=== PATIENT | male | born 1980 | race African-American/Black ===

== ENCOUNTER → 2018-03-16 | Outpatient (CLI) | payer OTHER ==
[2014-04-05 22:39] VITALS: BP 185/112
--- NOTE | 2018-03-16 10:56 | RAD ---
Ultrasound-guided left thyroid biopsy, 03/16/2018: History: Dominant enlarging nodule An outside study demonstrated a multinodular goiter with multiple solid nodules. It was thought that the dominant nodule in the lower pole of the left lobe of the gland was enlarging, and therefore ultrasound-guided biopsy was requested. Under local anesthesia, aseptic conditions and sonographic guidance a 25-gauge was passed into the nodule in the inferior aspect of the left lobe of the thyroid gland via an anterolateral medial approach. 4 aspirates were obtained from different portions of the nodule in this manner with the materials sent to pathology for evaluation. Hemostasis was then obtained. The patient tolerated the procedure well and left the department in good condition. The pathology results are pending.
--- NOTE | 2018-03-21 10:10 | PATHOLOGY ---
Note [facility] Accession Number: [id number] TESTS RESULT FLAG UNITS REF RANGE LAB Clinician Provided Cytology Information No. of containers..01 Other (Miscellaneous) Source: LEFT THYROID DIAGNOSIS: LEFT THYROID NEGATIVE FOR MALIGNANT CELLS. B[place]ESDA CATEGORY II. SPECIMEN CONSISTS OF BENIGN FOLLICULAR CELLS, HEMOSIDERIN-LADEN MACROPHAGES, COLLOID, AND BLOOD. THIS PATTERN IS CONSISTENT WITH A BENIGN FOLLICULAR NODULE. Pathologist ICD10: 02 E04.1 Signed out by: Mike Hernández MD, Pathologist NPI- [id number] Performed by: Santa Mckinley, Corporate Legal Assistant ([facility]) Gross description: 30ML, RED, CLEAR /LCS FLAG LEGEND: L-Low Normal,H-High Normal,LL-Alert Low,HH-Alert High <-Panic Low,>-Panic High,A-Abnormal,AA-Critical Abnormal Performed at: 01 [facility] [address] [place] [address] Hua Ruff MD, 02 [facility] [address] [place] [address] Mike Hernández MD, Specimen Comment: A courtesy copy of this report has been sent to Specimen Comment: [phone]. Specimen Comment: Report sent to Performed at: [address], [place], [place] [id number] MD Hua Ruff MD Phone: [phone]
== END | disposition home or self-care (01) ==
LOC: US 08:34
PROVIDERS: ATTEND Surgery
DX: E04.1 Nontoxic single thyroid nodule (principal)
CPT/HCPCS: 10022; 60300; 76942; 88173

== ENCOUNTER 2018-11-05 14:20 | Emergency (ER) | payer OTHER ==
[~2018-11-05] VITALS: Ht 193 cm; Wt 199.6 kg
[2018-11-05 14:44] VITALS: BP 207/103
[2018-11-05] MEDS: fentaNYL PF VIAL 100 MCG/2 ML VIAL IV ONE (16:25)
[2018-11-05 16:27] LABS: BASO # 0.1 x10^3/uL (0.0-0.2); BASO % 1 % (0-3); EOS # 0.2 x10^3/uL (0.0-0.7); EOS % 2 % (0-3); HEMATOCRIT 42.9 % (39.0-53.0); HEMOGLOBIN 14.6 g/dL (13.0-17.5); LYMPH % 31 % (24-48); MEAN CORPUSCULAR HEMOGLOBIN 29 pg (25-35); MEAN CORPUSCULAR HGB CONC 34 g/dL (31-37); MEAN CORPUSCULAR VOLUME 86 fL (79-100); MONO # 1.3 x10^3/uL (0.0-1.1); MONO % 13 % (0-9); NEUT # 5.3 x10^3uL (1.8-7.7); NEUT % 54 % (31-73); PLATELET COUNT 305 x10^3/uL (140-400); RED BLOOD COUNT 4.98 x10^6/uL (4.30-5.70); RED CELL DISTRIBUTION WIDTH 14.4 % (11.5-14.5)
[2018-11-05 16:45] LABS: CALCIUM 9.6 mg/dL (8.5-10.1); CREATININE 1.4 mg/dL (0.7-1.3); GFR 68.6; POTASSIUM 4.1 mmol/L (3.5-5.1)
[2018-11-05 16:50] LABS: ALBUMIN 3.5 g/dL (3.4-5.0); ALBUMIN/GLOBULIN RATIO 0.8 (1.0-1.7); TOTAL BILIRUBIN 0.2 mg/dL (0.2-1.0); URIC ACID 8.6 mg/dL (3.5-7.2)
--- NOTE | 2018-11-05 16:54 | PHYS DOC ---
Past Medical History Past Medical History: Hypertension Past Surgical History: Tonsillectomy Alcohol Use: Occasionally Drug Use: None Adult General Chief Complaint Chief Complaint: FOOT INJURY PAIN HPI HPI 38-year-old male presents to ER via POV for complaints of left ankle and foot swelling which started on Tuesday and has been gradually worsening. Pt reports he felt feverish yesterday denies fatigue, nausea or vomiting, shortness of air, or palpitations. Pt reports he took Excedrin yesterday denies any [id number]-[id number] medicine today. Pt denies any injury. Patient reports he has a daily cigarette smoker approximate half pack per day. Patient states he [place] drive to [place]. Review of Systems Review of Systems Constitutional: Reports felt feverish with chills yesterday. Eyes: Denies change in visual acuity, redness, or eye pain [] HENT: Denies nasal congestion or sore throat [] Respiratory: Denies cough or shortness of breath [] Cardiovascular: No additional information not addressed in HPI [] GI: Denies abdominal pain, nausea, vomiting, bloody stools or diarrhea [] : Denies dysuria or hematuria [] Musculoskeletal: Denies back pain. Reports lt ankle/foot pain and swelling Integument: Denies rash or skin lesions [] Neurologic: Denies headache, focal weakness or sensory changes [] Endocrine: Denies polyuria or polydipsia [] All other systems were reviewed and found to be within normal limits, except as documented in this note. Current Medications Current Medications Current Medications Medications (Trade) Dose Ordered Sig/Lauren Start Time Stop Time Status Last Admin Dose Admin Acetaminophen/ Hydrocodone Bitart (Lortab 5/325) 1 tab 1X ONCE 11/05/18 17:45 11/05/18 17:46 DC 11/05/18 17:49 1 TAB Fentanyl Citrate (Fentanyl 2ml Vial) 50 mcg 1X ONCE 11/05/18 16:00 11/05/18 16:01 DC 11/05/18 16:25 50 MCG Prednisone (Prednisone) 50 mg 1X ONCE 11/05/18 17:45 11/05/18 17:46 DC 11/05/18 17:49 50 MG Allergies Allergies Allergies Coded Allergies Type Severity Reaction Last Updated Verified No Known Drug Allergies 04/05/14 No Physical Exam Physical Exam Constitutional: Well developed, well nourished, no acute distress, non-toxic appearance. [] HENT: Normocephalic, atraumatic, bilateral external ears normal, oropharynx moist, no oral exudates, nose normal. [] Eyes: Pupils equal, conjunctiva normal, no discharge. [] Neck: Normal range of motion, no tenderness, supple, no stridor. [] Cardiovascular:Heart rate regular rhythm, no murmur [] Lungs & Thorax: Bilateral breath sounds clear to auscultation [] Abdomen: Bowel sounds normal, soft/obese, no tenderness Skin: Warm, dry, no erythema, no rash. [] Back: No tenderness, no CVA tenderness. [] Extremities: No cyanosis, no clubbing Neurologic: Alert and oriented X 3, normal motor function, normal sensory function, no focal deficits noted. [] Psychologic: Affect normal, judgement normal, mood normal. [] Current Patient Data Vital Signs Vital Signs Date Time Temp Pulse Resp B/P (MAP) Pulse Ox O2 Delivery O2 Flow Rate FiO2 11/05/18 17:49 16 98 11/05/18 16:25 Room Air 11/05/18 14:44 98.6 111 207/103 (137) 98.6 Lab Values Laboratory Tests Test 11/05/18 16:18 White Blood Count 10.0 x10^3/uL (4.0-11.0) Red Blood Count 4.98 x10^6/uL (4.30-5.70) Hemoglobin 14.6 g/dL (13.0-17.5) Hematocrit 42.9 % (39.0-53.0) Mean Corpuscular Volume 86 fL (79-100) Mean Corpuscular Hemoglobin 29 pg (25-35) Mean Corpuscular Hemoglobin Concent 34 g/dL (31-37) Red Cell Distribution Width 14.4 % (11.5-14.5) Platelet Count 305 x10^3/uL (140-400) Neutrophils (%) (Auto) 54 % (31-73) Lymphocytes (%) (Auto) 31 % (24-48) Monocytes (%) (Auto) 13 % (0-9) H Eosinophils (%) (Auto) 2 % (0-3) Basophils (%) (Auto) 1 % (0-3) Neutrophils # (Auto) 5.3 x10^3uL (1.8-7.7) Lymphocytes # (Auto) 3.0 x10^3/uL (1.0-4.8) Monocytes # (Auto) 1.3 x10^3/uL (0.0-1.1) H Eosinophils # (Auto) 0.2 x10^3/uL (0.0-0.7) Basophils # (Auto) 0.1 x10^3/uL (0.0-0.2) Sodium Level 143 mmol/L (136-145) Potassium Level 4.1 mmol/L (3.5-5.1) Chloride Level 105 mmol/L (98-107) Carbon Dioxide Level 32 mmol/L (21-32) Anion Gap 6 (6-14) Blood Urea Nitrogen 11 mg/dL (8-26) Creatinine 1.4 mg/dL (0.7-1.3) H Estimated GFR (Cockcroft-Gault) 68.6 BUN/Creatinine Ratio 8 (6-20) Glucose Level 103 mg/dL (70-99) H Uric Acid 8.6 mg/dL (3.5-7.2) H Calcium Level 9.6 mg/dL (8.5-10.1) Total Bilirubin 0.2 mg/dL (0.2-1.0) Aspartate Amino Transferase (AST) 19 U/L (15-37) Alanine Aminotransferase (ALT) 34 U/L (16-63) Alkaline Phosphatase 33 U/L (46-116) L Total Protein 8.0 g/dL (6.4-8.2) Albumin 3.5 g/dL (3.4-5.0) Albumin/Globulin Ratio 0.8 (1.0-1.7) L Laboratory Tests 11/05/18 16:18 Laboratory Tests 11/05/18 16:18 EKG EKG [] Radiology/Procedures Radiology/Procedures PROCEDURE: FOOT LEFT 3V Left foot 3 views. HISTORY: Pain and swelling 3 views were taken of the left foot. There is diffuse soft tissue swelling. There is no acute fracture. There is no bony destructive process. IMPRESSION: 1. Soft tissue swelling left foot. 2. No acute fracture or acute osseous abnormality. Electronically signed by: Santos Orr MD (11/05/2018 4:56 PM) [id number] DICTATED and SIGNED BY: SANTOS ORR MD DATE: 11/05/18 1043 PROCEDURE: VENOUS LOWER EXTREMITY LEFT Left lower extremity venous ultrasound : History: Left foot and ankle pain and swelling, morbid obesity Duplex evaluation including grayscale, color flow and spectral Doppler analysis was performed. The femoral and popliteal veins show no filling defects to suggest DVT. The visualized calf veins are not optimally evaluated but there is flow with color imaging and augmentation.. IMPRESSION: 1. There is no sonographic evidence of deep vein thrombosis in the left lower extremity. Electronically signed by: Santos Orr MD (11/05/2018 5:26 PM) [id number] DICTATED and SIGNED BY: SANTOS ORR MD DATE: 11/05/18 2376 Course & Med Decision Making Course & Med Decision Making Pertinent Labs and Imaging studies reviewed. (See chart for details) Pt was evaluated in the ER for complaints of left foot pain and swelling- den nuvia any injury. Patient had labs, x-ray, and ultrasound obtained. Ultrasound was negative for DVT and foot x-ray showed soft tissue swelling otherwise no acute findings. Pt's uric acid was elevated on labs at 8.6. Test results were discussed with patient along with gout and discharge plan. Patient was provided with pain medication while in the ER and started on PO penicillin. Discussed plans for prescriptions of prednisone, colchicine, and [place] with discharge paperwork. Pt remains PMS intact in left lower extremity reporting pain and swelling has improved since arriving to ER. Education provided on signs and symptoms to return to ER. Discharge instructions were discussed. Patient to follow-up with primary care physician for re-evaluation and further care. Dragon Disclaimer Dragon Disclaimer This electronic medical record was generated, in whole or in part, using a voice recognition dictation system. Departure Departure Impression: Primary Impression: Gout Disposition: 01 HOME, SELF-CARE Condition: STABLE Referrals: LIZZIE SILVESTRE (PCP) Patient Instructions: Gout Additional Instructions: Drink plenty of fluids. Elevated extremity as much as possible to improve swelling. Call as soon as possible and schedule follow-up with your primary doctor for re- evaluation and further care in 3-5 days. Scripts Colchicine (COLCRYS) 0.6 Mg Tablet 1 TAB PO DAILY, #9 TAB 0 Refills 0.6 mg initial dose- then can take additional dose 0.6 mg 1 hour later- max dose 1.2 mg daily Prov: ELKE LEMUS APRN 11/05/18 Hydrocodone/Apap 5-325 (NORCO 5-325 TABLET) 1 Each Tablet 1 TAB PO PRN Q6HRS PRN for PAIN, #14 TAB 0 Refills Prov: ELKE LEMUS APRN 11/05/18 Prednisone (PREDNISONE) 50 Mg Tablet 1 TAB PO DAILY, #4 TAB 0 Refills Start 11/06/18 Prov: ELKE LEMUS APRN 11/05/18 ELKE LEMUS APRN Nov 05, 2018 16:54
--- NOTE | 2018-11-05 16:59 | RAD ---
Left foot 3 views. HISTORY: Pain and swelling 3 views were taken of the left foot. There is diffuse soft tissue swelling. There is no acute fracture. There is no bony destructive process. IMPRESSION: 1. Soft tissue swelling left foot. 2. No acute fracture or acute osseous abnormality. Electronically signed by: Santos Hameed MD (11/05/2018 4:56 PM) [id number]
--- NOTE | 2018-11-05 17:29 | RAD ---
Left lower extremity venous ultrasound : History: Left foot and ankle pain and swelling, morbid obesity Duplex evaluation including grayscale, color flow and spectral Doppler analysis was performed. The femoral and popliteal veins show no filling defects to suggest DVT. The visualized calf veins are not optimally evaluated but there is flow with color imaging and augmentation.. IMPRESSION: 1. There is no sonographic evidence of deep vein thrombosis in the left lower extremity. Electronically signed by: Santos Hameed MD (11/05/2018 5:26 PM) [id number]
[2018-11-05] MEDS: predniSONE 10 MG TABLET PO ONE (17:49)
[2018-11-05] MEDS: HYDROcodone/APAP 5/325MG 1 TAB TABLET PO ONE (17:49)
[2018-11-05] MEDS ORDERED: COLC0.6T34 PO (18:06)
[2018-11-05] MEDS ORDERED: PRED50TA PO (18:06)
[2018-11-05] MEDS ORDERED: HYDR-3164 PO (18:06)
== END 2018-11-05 18:25 | disposition home or self-care (01) ==
LOC: ER 14:20
DX: M10.9 Gout, unspecified (principal); I10 Essential (primary) hypertension; F17.210 Nicotine dependence, cigarettes, uncomplicated
CPT/HCPCS: 36415; 73630; 80053; 84550; 85025; 93971; 96374; 99285; J3010; J7512

== ENCOUNTER 2021-02-08 23:56 | Emergency (ER) | payer SELFPAY ==
[~2021-02-08] VITALS: Ht 175.3 cm; Wt 178.0 kg
[~2021-02-08 23:56] MED LIST: ASPI-630 PO; COLC0.6T34 PO; FAMO-63 PO; HYDR-2869 PO; HYDR-3164 PO; METO50TA6 PO; PRED50TA PO
--- NOTE | 2021-02-09 01:48 | ED.ADGEN ---
Past Medical History Past Medical History: Hypertension Additional Past Medical Histor: GOITER, AORTIC ANEURYSM Past Surgical History: No Surgical History, Tonsillectomy Smoking Status: Former Smoker Alcohol Use: None Drug Use: None General Adult EDM: Chief Complaint: OTHER COMPLAINTS HPI: HPI: Patient is a 40 year old male discharge from the hospital yesterday for hypertensive emergency. Was found to have an incidental goiter on a CTA of his chest. Patient is here because he feels that he has a concern that he has difficulty breathing and swallowing. Patient had similar complaints. Patient is here because he cannot get follow-up with his primary care provider for 4 to 5 days and thinks he should be seen sooner. States he took his metoprolol and one of his hydralazine and this morning, thinks he might be allergic to his hydralazine so did not take his other dose. Review of Systems: Review of Systems: All other systems within normal limits except for as noted in the HPI Allergies: Allergies: Allergies Coded Allergies Type Severity Reaction Last Updated Verified amlodipine Allergy Severe THROAT SWELLING/ITCHING 02/09/21 Yes Physical Exam: PE: Constitutional: Well developed, well nourished, no acute distress, non-toxic appearance. [] HENT: Normocephalic, atraumatic, bilateral external ears normal, nose normal. Posterior pharynx normal without swelling or uvular shift [] Eyes: PERRLA, conjunctiva normal, no discharge. [] Neck: No rigidity, supple, no stridor. Large anterior goiter [] Cardiovascular: Regular rate and rhythm, brisk cap refill [] Lungs & Thorax: Non labored symmetric respirations, no tachypnea or respiratory distress [] Abdomen: Soft, nondistended. Skin: Warm, dry, no erythema, no rash. [] Back: Unremarkable Extremities: No deformities, range of motion grossly intact, no lower extremity edema [] Neurologic: Alert and oriented X 3, no focal deficits noted. [] Psychologic: Affect normal, judgement normal, mood normal. [] Current Patient Data: Vital Signs: Vital Signs Date Time Temp Pulse Resp B/P (MAP) Pulse Ox O2 Delivery O2 Flow Rate FiO2 02/09/21 00:08 98.7 71 18 196/122 (146) 100 Room Air 98.7 EKG: EKG: [] Heart Score: C/O Chest Pain: No Risk Factors: Risk Factors: DM, Current or recent (<one month) smoker, HTN, HLP, family history of CAD, obesity. Risk Scores: Score 0 - 3: 2.5% MACE over next 6 weeks - Discharge Home Score 4 - 6: 20.3% MACE over next 6 weeks - Admit for Clinical Observation Score 7 - 10: 72.7% MACE over next 6 weeks - Early Invasive Strategies Radiology/Procedures: Radiology/Procedures: [] Course & Med Decision Making: Course & Med Decision Making Pertinent Labs and Imaging studies reviewed. (See chart for details) Patient speaking in complete sentences, managing secretions, no signs of respiratory distress [] Dragon Disclaimer: Dragon Disclaimer: This electronic medical record was generated, in whole or in part, using a voice recognition dictation system. Departure Departure Impression: Primary Impression: Mary Disposition: 01 HOME / SELF CARE / HOMELESS Condition: STABLE Referrals: LIZZIE SILVESTRE (PCP) [facility] Patient Instructions: EDWIN Mackay MD Feb 09, 2021 01:48
[2021-02-09 02:13] VITALS: BP 183/98
--- NOTE | 2021-02-09 03:59 | RAD ---
EXAM: THYROID ULTRASOUND. HISTORY: Goiter, difficulty swallowing. Prior negative thyroid biopsy. COMPARISON: None. FINDINGS: Sonographic evaluation of the thyroid gland was performed and evaluated using ACR TI-RADS c riteria. Right lobe: The right lobe measures 7.6 x 5.8 x 3.9 cm. The lobe is diffusely enlarged by multiple hy perechoic solid nodules measuring up to 3.1 cm. Left lobe: The left lobe measures 7.8 x 4.9 x 4.2 cm. The lobe is diffusely enlarged by multiple nodu les measuring up to 5.7 x 4.7 cm. Isthmus: The isthmus is thickened to 2.9 cm by a 4.0 x 2.9 cm nodule. IMPRESSION/RECOMMENDATION: 1. Moderate bilateral multinodular goiter. This is usually a benign process. Prior negative thyroid b iopsy. Electronically signed by: Prudence Mohan MD (02/09/2021 3:57 AM) [facility]
== END 2021-02-09 02:38 | disposition home or self-care (01) ==
LOC: ER 23:56
DX: E04.9 Nontoxic goiter, unspecified (principal); I10 Essential (primary) hypertension; Z87.891 Personal history of nicotine dependence; Z88.1 Allergy status to other antibiotic agents
CPT/HCPCS: 76536; 99284-25

== ENCOUNTER 2021-02-10 19:46 | Emergency (ER) | payer SELFPAY ==
[2021-02-09 02:13] VITALS: BP 183/98
== END 2021-02-10 23:45 | disposition left against medical advice (07) ==
LOC: ER 19:46
DX: R06.02 Shortness of breath (principal); Z53.21 Procedure and treatment not carried out due to patient leaving prior to being seen by health care provider